=== PATIENT | female | born 1960 | race Caucasian/White ===

== ENCOUNTER 2019-01-30 21:51 | Emergency (ER) | payer OTHER ==
--- NOTE | 2019-01-30 21:59 | PDOC ---
History of Present Illness - General Chief Complaint: Wound Stated Complaint: REDNESS LLE Time Seen by Provider: 01/30/19 21:58 History Source: Patient Exam Limitations: No Limitations - History of Present Illness Initial Comments: 01/30/19 22:29 This is a 58-year-old female who comes in complaining of a spider bite. Patient said that she was bit 3 days ago and started on antibiotics yesterday. Patient was started on clindamycin by the urgent care center. Patient said that the area is getting better but she was concerned because it is still red and wanted it reevaluated. Patient denies any fevers, chills or any systemic symptoms. Patient says that it is minimally uncomfortable. Patient is otherwise healthy. Allergies: as per nursing notes Past Medical History: none Social history: Lives with family. No smoking. No alcohol. No illicit drugs. Surgical history: None General: No fevers or chills, no weakness, no weight loss HEENT: No change in vision. No sore throat,. No ear pain CardioVascular: no chest discomfort. No shortness of breath Respiratory:No cough, or wheezing. Gastrointestinal: no nausea, vomiting, diarrhea or constipation, No rectal bleeding Genitourinary: No dysuria, hematuria, or frequency Musculoskeletal: No joint or muscle pain or swelling Neurologic: No headache, vertigo, dizziness or loss of consciousness Psychiatric: nor depression Skin: Left lower extremity bug bite/spider bite Endocrine: no increased thirst or abnormal weight change Allergic: no skin or latex allergy All other systems reviewed and normal GENERAL: The patient is awake, alert, and fully oriented, in no acute distress. HEAD: Normal with no signs of trauma. EYES: Pupils equal, round and reactive to light, extraocular movements intact, sclera anicteric, conjunctiva clear. EXTREMITIES:atraumatic lower extremity there is an area of necrosis with a central area of tissue loss. Necrosis is approximately 2 x 2 cm there is some surrounding erythema to the area of approximately 5 x 5 cm. There is no increase in warmth. There is minimal tenderness on palpation. There is no purulence or alcohol or from the area. Patient had a levelock drawn around the area yesterday and the size of the redness has significantly decreased. By several centimeters. NEUROLOGICAL: Normal speech, normal gait. PSYCH: Normal mood, normal affect. SKIN: Warm, Dry, normal turgor, no rashes or lesions noted. S1 and plan: This is a 58 her old female who sustained a bug bite about 3 doses ago and now has a localized reaction with some necrotic tissue. Patient told to continue to cover the area and also up with a plastic surgeon. Patient given a plastic surgeon Past History - Past Medical History Allergies/Adverse Reactions: Allergies Allergy/AdvReac Type Severity Reaction Status Date / Time Penicillins Allergy Mild Rash Verified 11/13/13 12:05 AGAVE AdvReac Uncoded 01/30/19 21:56 Home Medications: Ambulatory Orders Clindamycin [Cleocin -] 300 mg PO TID 01/30/19 Anemia: No Asthma: No Cancer: No Cardiac Disorders: No CVA: No COPD: No CHF: No Dementia: No Diabetes: No GI Disorders: Yes (H/O REFLUX) Disorders: No HTN: No Hypercholesterolemia: No Liver Disease: No Seizures: No Thyroid Disease: No - Surgical History Abdominal Surgery: Yes Appendectomy: No Cardiac Surgery: No Cholecystectomy: No Lung Surgery: No Neurologic Surgery: No Orthopedic Surgery: No - Suicide/Smoking/Psychosocial Hx Smoking History: Former smoker Have you smoked in the past 12 months: No Number of Cigarettes Smoked Daily: 0 If you are a former smoker, when did you quit?: 25 YEARS Hx Alcohol Use: Yes (RARE) Drug/Substance Use Hx: No Substance Use Type: None, Alcohol Hx Substance Use Treatment: No *DC/Admit/Observation/Transfer Diagnosis at time of Disposition: Spider bite Qualifiers: Encounter type: initial encounter Injury intent: accidental or unintentional Qualified Code(s): T63.301A - Toxic effect of unspecified spider venom, accidental (unintentional), initial encounter - Discharge Dispostion Disposition: HOME Condition at time of disposition: Stable Decision to Admit order: No - Referrals - Patient Instructions Additional Instructions: Cover the area with a gauze pad to protect it from being rubbed open from the pant leg. Follow-up with the plastic surgeon if any worsening symptoms or concerns for the amount of tissue loss Return to the emergency department immediately with ANY new, persistent or worsening symptoms. Continue any medications as previously prescribed by your physician. You should follow up with your primary doctor as soon as possible regarding today's emergency department visit. . Please make sure your doctor reviews the results of your emergency evaluation. Thank you for coming to the Emergency Department today for your care. It was a pleasure to see you today. Please note that your evaluation is INCOMPLETE until you follow-up with your doctor. - Post Discharge Activity
[2019-01-30 22:02] VITALS: BP 157/101; PULSE 81; TEMP 98.6; BMI 41.5
== END 2019-01-30 22:52 | disposition home or self-care (01) ==
LOC: FER 21:51
DX: T63.301A Toxic effect of unspecified spider venom, accidental (unintentional), initial encounter (principal); Y92.9 Unspecified place or not applicable; Z87.891 Personal history of nicotine dependence
CPT/HCPCS: 99281-25